=== PATIENT | female | born 1935 | race African-American/Black ===

== ENCOUNTER 2021-03-30 15:43 | Inpatient (IN) ==
[2021-03-30 17:36] LABS: Bilirubin,Urine Negative (Negative); Blood, Urine Small mg/dL (Negative); Glucose,Urine (UA) >=500 mg/dL (Negative); Hyaline Casts,Urine 32 /LPF (0-3); Ketones,Urine Negative (Negative); Mucus,Urine Occasional /LPF (Occasional); Nitrite,Urine Negative (Negative); Protein,Urine 30 MG/DL; RBC,Urine 1 /HPF (0-4); Urine Appearance CLEAR (Clear); Urine Color Yellow (Yellow); Urine Specific Gravity 1.013 (1.001-1.035); Urine Urobilinogen < 2.0 EU/DL (0.2-1.0)
[2021-03-30 18:25] LABS: Basophils # 0.1 10*3/uL (0.0-0.2); Basophils % 0.5 % (0.0-0.8); Eosinophils # 0.1 10*3/uL (0.0-0.87); Eosinophils % 0.9 % (0.00-10.9); Hematocrit 30.9 VOL% (35.7-47.0); Hemoglobin 9.6 GM/DL (12.0-16.0); Immature Granulocytes % 0.9 %; Immature Granulocytes Absolute 0.09 #; Lymphocytes # 1.1 10*3/uL (1.4-4.0); Mean Corpuscular HGB Conc 31.1 GM/DL (32-36); Mean Corpuscular Volume 83.1 FL (87-102); Mean Platelet Volume 9.9 FL (9.6-12.0); Monocytes % 5.6 % (1.7-12.7); Neutrophils % 81.1 % (38.7-73.9); Platelet Count 304 T/CUMM (130-400); Red Blood Count 3.72 MC/CUMM (3.8-5.5); Red Cell Distribution Width 13.3 % (9.3-17.3); White Blood Count 9.8 T/CUMM (4-12)
[2021-03-30] MEDS ORDERED: AMPICILLIN/SULBACTAM 3,000 MG in SODIUM CHLORIDE 0.9% 100 ML IV STA (18:30)
[2021-03-30] MEDS ORDERED: ONDANSETRON 4 MG/2 ML VIAL IV PRN (18:50)
[2021-03-30] MEDS ORDERED: ACETAMINOPHEN 325 MG TABLET PO PRN (18:50)
[2021-03-30 18:51] LABS: Albumin 2.9 G/DL (3.4-5.0); Bilirubin,Total 0.5 MG/DL (0.20-1.00); Osmolality,Calculated 290.1 MOS/KG (273-304); Potassium 3.4 MMOL/L (3.5-5.1); Total Protein 7.4 G/DL (6.4-8.2)
[2021-03-30] MEDS: SODIUM CHLORIDE 0.9% 1,000 ML IV SCH ×2 (19:27→22:49)
[2021-03-30] MEDS ORDERED: DOCUSATE SODIUM 100 MG CAPSULE PO SCH (21:00)
[2021-03-30] MEDS: PANTOPRAZOLE 40 MG TABLET PO SCH ×2 (22:14→22:15)
[2021-03-30] MEDS: DOCUSATE SODIUM 100 MG CAPSULE PO SCH (22:14)
[2021-03-31] MEDS ORDERED: hydrALAZINE 20 MG/1 ML VIAL IV PRN (04:59)
[2021-03-31] MEDS: SODIUM CHLORIDE 0.9% 1,000 ML IV SCH ×4 (05:21→23:18)
[2021-03-31 05:51] LABS: Basophils # 0.1 10*3/uL (0.0-0.2); Basophils % 0.6 % (0.0-0.8); Eosinophils # 0.2 10*3/uL (0.0-0.87); Eosinophils % 1.8 % (0.00-10.9); Hematocrit 29.2 VOL% (35.7-47.0); Immature Granulocytes % 0.6 %; Immature Granulocytes Absolute 0.05 #; Lymphocytes # 1.7 10*3/uL (1.4-4.0); Lymphocytes % 19.6 % (21.3-54.2); Mean Corpuscular HGB Conc 30.8 GM/DL (32-36); Mean Platelet Volume 10.4 FL (9.6-12.0); Monocytes % 5.3 % (1.7-12.7); Neutrophils % 72.1 % (38.7-73.9); Platelet Count 297 T/CUMM (130-400); Red Blood Count 3.52 MC/CUMM (3.8-5.5); Red Cell Distribution Width 13.3 % (9.3-17.3); White Blood Count 8.9 T/CUMM (4-12)
[2021-03-31 06:15] LABS: Calcium 8.7 MG/DL (8.5-10.1); Osmolality,Calculated 283.8 MOS/KG (273-304); Potassium 2.9 MMOL/L (3.5-5.1)
[2021-03-31] MEDS ORDERED: POTASSIUM CHLORIDE RIDER 10 MEQ/100 ML PREMIX IV PRN (06:35)
[2021-03-31] MEDS ORDERED: DEXTROSE 50% 25 GM/50 ML VIAL IV PRN (07:05)
[2021-03-31] MEDS ORDERED: GLUCAGON 1 MG VIAL IM PRN (07:05)
[2021-03-31] MEDS ORDERED: MAGNESIUM SULF RIDER 4 GM/100 ML PREMIX IV PRN (07:22)
[2021-03-31] MEDS: MAGNESIUM SULF RIDER 2 GM/50 ML PREMIX IV PRN (07:58)
[2021-03-31] MEDS ORDERED: PANTOPRAZOLE 40 MG TABLET PO SCH (09:00)
[2021-03-31] MEDS: INSULIN REGULAR 100 UNIT/ML SUBCUT SCH ×4 (09:21→20:51)
[2021-03-31] MEDS: DOCUSATE SODIUM 100 MG CAPSULE PO SCH ×2 (09:21→20:44)
[2021-03-31] MEDS: PANTOPRAZOLE 40 MG TABLET PO SCH (09:21)
[2021-03-31] MEDS: POTASSIUM CHLORIDE RIDER 10 MEQ/100 ML PREMIX IV PRN ×5 (10:18→16:17)
[2021-03-31] MEDS ORDERED: cloNIDine 0.1 MG TABLET PO SCH ×2 (12:00→21:00)
[2021-03-31] MEDS: hydroCHLOROthiazide 12.5 MG CAPSULE PO SCH (12:50)
[2021-03-31] MEDS ORDERED: BICILLIN CR 1,200,000 UNIT/2 ML SYRINGE IM ONE (15:00)
[2021-03-31] MEDS: GLIMEPIRIDE 2 MG TABLET PO SCH (17:46)
[2021-03-31] MEDS: carvediloL 12.5 MG TABLET PO SCH (17:46)
[2021-03-31] MEDS: COLLAGENASE OINT 30 GM TUBE TOP SCH (17:46)
[2021-03-31 19:43] LABS: Potassium 3.8 MMOL/L (3.5-5.1)
[2021-03-31] MEDS: TEMAZEPAM 7.5 MG CAPSULE PO SCH (20:43)
[2021-03-31] MEDS: busPIRone 5 MG TABLET PO SCH (20:44)
[2021-03-31] MEDS: POTASSIUM CHLORIDE 20 MEQ TABLET PO SCH (20:44)
[2021-03-31] MEDS: MEMANTINE 10 MG TABLET PO SCH (20:44)
[2021-04-01 06:29] LABS: Basophils % 0.5 % (0.0-0.8); Eosinophils # 0.1 10*3/uL (0.0-0.87); Eosinophils % 1.7 % (0.00-10.9); Hematocrit 29.8 VOL% (35.7-47.0); Hemoglobin 8.9 GM/DL (12.0-16.0); Immature Granulocytes % 1.1 %; Immature Granulocytes Absolute 0.09 #; Lymphocytes # 1.5 10*3/uL (1.4-4.0); Lymphocytes % 17.4 % (21.3-54.2); Mean Corpuscular HGB Conc 29.9 GM/DL (32-36); Mean Corpuscular Volume 85.1 FL (87-102); Mean Platelet Volume 9.9 FL (9.6-12.0); Monocytes % 6.1 % (1.7-12.7); Neutrophils % 73.2 % (38.7-73.9); Platelet Count 279 T/CUMM (130-400); Red Cell Distribution Width 13.5 % (9.3-17.3); White Blood Count 8.3 T/CUMM (4-12)
[2021-04-01 06:59] LABS: Albumin 2.2 G/DL (3.4-5.0); Bilirubin,Total 0.7 MG/DL (0.20-1.00); Calcium 8.4 MG/DL (8.5-10.1); Osmolality,Calculated 280.4 MOS/KG (273-304)
[2021-04-01] MEDS: INSULIN REGULAR 100 UNIT/ML SUBCUT SCH ×4 (07:48→21:57)
[2021-04-01] MEDS: COLLAGENASE OINT 30 GM TUBE TOP SCH (08:47)
[2021-04-01] MEDS: MAGNESIUM SULF RIDER 2 GM/50 ML PREMIX IV PRN (08:47)
[2021-04-01] MEDS: carvediloL 12.5 MG TABLET PO SCH ×2 (08:47→16:42)
[2021-04-01] MEDS: MEMANTINE 10 MG TABLET PO SCH ×2 (08:47→21:58)
[2021-04-01] MEDS: hydroCHLOROthiazide 12.5 MG CAPSULE PO SCH (08:47)
[2021-04-01] MEDS: GLIMEPIRIDE 2 MG TABLET PO SCH ×2 (08:47→16:42)
[2021-04-01] MEDS: POTASSIUM CHLORIDE 20 MEQ TABLET PO SCH ×2 (09:41→21:58)
[2021-04-01] MEDS: busPIRone 5 MG TABLET PO SCH ×2 (09:41→21:58)
[2021-04-01] MEDS: DOCUSATE SODIUM 100 MG CAPSULE PO SCH ×2 (09:41→21:58)
[2021-04-01] MEDS: PANTOPRAZOLE 40 MG TABLET PO SCH (09:41)
[2021-04-01] MEDS: FERROUS SULFATE 325 MG TABLET PO SCH (09:41)
[2021-04-01] MEDS: SODIUM CHLORIDE 0.9% 1,000 ML IV SCH ×2 (10:14→13:39)
[2021-04-01] MEDS ORDERED: TRANEXAMIC ACID 1,000 MG/10 ML VIAL ONE (10:16)
[2021-04-01] MEDS ORDERED: DEXMEDETOMIDINE 200 MCG/2 ML VIAL ONE (10:16)
[2021-04-01] MEDS ORDERED: MIDAZOLAM 2 MG/2 ML VIAL ONE (10:16)
[2021-04-01] MEDS ORDERED: ONDANSETRON 4 MG/2 ML VIAL ONE (10:16)
[2021-04-01] MEDS ORDERED: LIDOCAINE 1% 5 ML VIAL ONE (10:25)
[2021-04-01] MEDS ORDERED: BUPIVACAINE MPF 0.25% 30 ML VIAL ONE (10:25)
[2021-04-01] MEDS ORDERED: DEXAMETHASONE 4 MG/1 ML VIAL ONE (10:25)
[2021-04-01] MEDS ORDERED: ceFAZolin 1,000 MG VIAL ONE (11:28)
[2021-04-01] MEDS ORDERED: MAGNESIUM HYDROXIDE SUSP 30 ML UDCUP PO PRN (12:35)
[2021-04-01] MEDS ORDERED: diphenhydrAMINE CAP 25 MG CAPSULE PO PRN (12:36)
[2021-04-01] MEDS ORDERED: BISACODYL 10 MG SUPP RECTAL PRN (12:36)
[2021-04-01] MEDS ORDERED: LACTULOSE 20 GM/30 ML UDCUP PO PRN (12:36)
[2021-04-01] MEDS ORDERED: DEXTROSE 50% 25 GM/50 ML VIAL IV PRN (18:26)
[2021-04-01] MEDS ORDERED: GLUCAGON 1 MG VIAL IM PRN (18:26)
[2021-04-01] MEDS: HYDROmorphone 2 MG/1 ML VIAL IV PRN (21:57)
[2021-04-01] MEDS: TEMAZEPAM 7.5 MG CAPSULE PO SCH (21:58)
[2021-04-02] MEDS: HYDROmorphone 2 MG/1 ML VIAL IV PRN ×2 (02:07→15:06)
[2021-04-02] MEDS: FONDAPARINUX 2.5 MG/0.5 ML SYRINGE SUBCUT SCH (05:22)
[2021-04-02 05:27] LABS: Basophils % 0.4 % (0.0-0.8); Eosinophils # 0.1 10*3/uL (0.0-0.87); Eosinophils % 0.6 % (0.00-10.9); Hematocrit 27.9 VOL% (35.7-47.0); Hemoglobin 8.5 GM/DL (12.0-16.0); Immature Granulocytes % 0.6 %; Immature Granulocytes Absolute 0.07 #; Lymphocytes # 1.5 10*3/uL (1.4-4.0); Lymphocytes % 13.4 % (21.3-54.2); Mean Corpuscular HGB Conc 30.5 GM/DL (32-36); Mean Platelet Volume 9.6 FL (9.6-12.0); Monocytes % 5.1 % (1.7-12.7); Neutrophils % 79.9 % (38.7-73.9); Platelet Count 295 T/CUMM (130-400); Red Blood Count 3.32 MC/CUMM (3.8-5.5); Red Cell Distribution Width 13.5 % (9.3-17.3)
[2021-04-02 05:49] LABS: Calcium 8.2 MG/DL (8.5-10.1); Osmolality,Calculated 277.7 MOS/KG (273-304); Potassium 4.4 MMOL/L (3.5-5.1)
[2021-04-02] MEDS: MAGNESIUM SULF RIDER 2 GM/50 ML PREMIX IV PRN (06:24)
[2021-04-02] MEDS: INSULIN REGULAR 100 UNIT/ML SUBCUT SCH ×4 (07:25→20:37)
[2021-04-02] MEDS: carvediloL 12.5 MG TABLET PO SCH ×2 (08:30→16:14)
[2021-04-02] MEDS: SERTRALINE 25 MG TABLET PO SCH (08:30)
[2021-04-02] MEDS: PANTOPRAZOLE 40 MG TABLET PO SCH (08:30)
[2021-04-02] MEDS: GLIMEPIRIDE 2 MG TABLET PO SCH ×2 (08:30→16:14)
[2021-04-02] MEDS: hydroCHLOROthiazide 12.5 MG CAPSULE PO SCH (08:30)
[2021-04-02] MEDS: POTASSIUM CHLORIDE 20 MEQ TABLET PO SCH ×2 (08:30→21:22)
[2021-04-02] MEDS: FERROUS SULFATE 325 MG TABLET PO SCH (08:30)
[2021-04-02] MEDS: MEMANTINE 10 MG TABLET PO SCH ×2 (08:30→21:22)
[2021-04-02] MEDS: busPIRone 5 MG TABLET PO SCH ×2 (08:30→21:22)
[2021-04-02] MEDS: SERTRALINE 100 MG TABLET PO SCH (08:30)
[2021-04-02] MEDS: DOCUSATE SODIUM 100 MG CAPSULE PO SCH ×2 (08:30→21:22)
[2021-04-02] MEDS: COLLAGENASE OINT 30 GM TUBE TOP SCH (08:31)
[2021-04-02] MEDS: SODIUM CHLORIDE 0.9% 1,000 ML IV SCH (15:57)
[2021-04-02] MEDS: TEMAZEPAM 7.5 MG CAPSULE PO SCH (21:22)
[2021-04-03] MEDS: FONDAPARINUX 2.5 MG/0.5 ML SYRINGE SUBCUT SCH (05:22)
[2021-04-03] MEDS: INSULIN REGULAR 100 UNIT/ML SUBCUT SCH ×4 (07:32→20:58)
[2021-04-03] MEDS: DOCUSATE SODIUM 100 MG CAPSULE PO SCH ×2 (08:53→21:01)
[2021-04-03] MEDS: GLIMEPIRIDE 2 MG TABLET PO SCH ×2 (08:53→17:21)
[2021-04-03] MEDS: busPIRone 5 MG TABLET PO SCH ×2 (08:54→20:57)
[2021-04-03] MEDS: POTASSIUM CHLORIDE 20 MEQ TABLET PO SCH ×2 (08:54→20:56)
[2021-04-03] MEDS: MEMANTINE 10 MG TABLET PO SCH ×2 (08:54→20:57)
[2021-04-03] MEDS: SERTRALINE 100 MG TABLET PO SCH (08:54)
[2021-04-03] MEDS: PANTOPRAZOLE 40 MG TABLET PO SCH (08:54)
[2021-04-03] MEDS: FERROUS SULFATE 325 MG TABLET PO SCH (08:54)
[2021-04-03] MEDS: hydroCHLOROthiazide 12.5 MG CAPSULE PO SCH (08:54)
[2021-04-03] MEDS: SERTRALINE 25 MG TABLET PO SCH (08:54)
[2021-04-03] MEDS: carvediloL 12.5 MG TABLET PO SCH ×2 (08:55→17:21)
[2021-04-03] MEDS: COLLAGENASE OINT 30 GM TUBE TOP SCH (08:55)
[2021-04-03] MEDS: cloNIDine 0.1 MG TABLET PO PRN (20:57)
[2021-04-03] MEDS: TEMAZEPAM 7.5 MG CAPSULE PO SCH (20:57)
[2021-04-04 05:11] LABS: Basophils % 0.4 % (0.0-0.8); Eosinophils # 0.1 10*3/uL (0.0-0.87); Eosinophils % 0.9 % (0.00-10.9); Hematocrit 27.8 VOL% (35.7-47.0); Hemoglobin 8.5 GM/DL (12.0-16.0); Immature Granulocytes % 0.8 %; Immature Granulocytes Absolute 0.08 #; Lymphocytes # 1.1 10*3/uL (1.4-4.0); Lymphocytes % 10.2 % (21.3-54.2); Mean Corpuscular HGB Conc 30.6 GM/DL (32-36); Mean Corpuscular Volume 83.2 FL (87-102); Monocytes % 4.4 % (1.7-12.7); Neutrophils % 83.3 % (38.7-73.9); Platelet Count 286 T/CUMM (130-400); Red Blood Count 3.34 MC/CUMM (3.8-5.5); Red Cell Distribution Width 13.4 % (9.3-17.3); White Blood Count 10.4 T/CUMM (4-12)
[2021-04-04 05:28] LABS: Calcium 8.9 MG/DL (8.5-10.1); Osmolality,Calculated 264.5 MOS/KG (273-304); Potassium 4.9 MMOL/L (3.5-5.1)
[2021-04-04] MEDS: FONDAPARINUX 2.5 MG/0.5 ML SYRINGE SUBCUT SCH (05:49)
[2021-04-04] MEDS: INSULIN REGULAR 100 UNIT/ML SUBCUT SCH ×4 (07:12→22:55)
[2021-04-04] MEDS: hydroCHLOROthiazide 12.5 MG CAPSULE PO SCH (10:24)
[2021-04-04] MEDS: PANTOPRAZOLE 40 MG TABLET PO SCH (10:24)
[2021-04-04] MEDS: COLLAGENASE OINT 30 GM TUBE TOP SCH (10:24)
[2021-04-04] MEDS: GLIMEPIRIDE 2 MG TABLET PO SCH ×2 (10:24→17:36)
[2021-04-04] MEDS: carvediloL 12.5 MG TABLET PO SCH ×2 (10:24→17:36)
[2021-04-04] MEDS: FERROUS SULFATE 325 MG TABLET PO SCH (10:24)
[2021-04-04] MEDS: DOCUSATE SODIUM 100 MG CAPSULE PO SCH ×2 (10:24→22:52)
[2021-04-04] MEDS: SERTRALINE 100 MG TABLET PO SCH (10:24)
[2021-04-04] MEDS: MEMANTINE 10 MG TABLET PO SCH ×2 (10:24→22:52)
[2021-04-04] MEDS: SERTRALINE 25 MG TABLET PO SCH (10:24)
[2021-04-04] MEDS: POTASSIUM CHLORIDE 20 MEQ TABLET PO SCH ×3 (10:24→22:53)
[2021-04-04] MEDS: busPIRone 5 MG TABLET PO SCH ×2 (10:24→22:53)
[2021-04-04] MEDS: cloNIDine 0.1 MG TABLET PO PRN (22:53)
[2021-04-04] MEDS: TEMAZEPAM 7.5 MG CAPSULE PO SCH (22:53)
[2021-04-05] MEDS: FONDAPARINUX 2.5 MG/0.5 ML SYRINGE SUBCUT SCH (05:29)
[2021-04-05 05:47] LABS: Basophils % 0.4 % (0.0-0.8); Eosinophils # 0.1 10*3/uL (0.0-0.87); Eosinophils % 1.3 % (0.00-10.9); Hematocrit 27.1 VOL% (35.7-47.0); Hemoglobin 8.4 GM/DL (12.0-16.0); Immature Granulocytes % 0.7 %; Immature Granulocytes Absolute 0.07 #; Lymphocytes # 1.1 10*3/uL (1.4-4.0); Lymphocytes % 11.1 % (21.3-54.2); Mean Corpuscular Volume 82.9 FL (87-102); Mean Platelet Volume 10.3 FL (9.6-12.0); Monocytes % 4.4 % (1.7-12.7); Neutrophils % 82.1 % (38.7-73.9); Platelet Count 319 T/CUMM (130-400); Red Blood Count 3.27 MC/CUMM (3.8-5.5); Red Cell Distribution Width 13.5 % (9.3-17.3); White Blood Count 9.5 T/CUMM (4-12)
[2021-04-05 06:09] LABS: Calcium 8.7 MG/DL (8.5-10.1); Osmolality,Calculated 271.2 MOS/KG (273-304); Potassium 4.6 MMOL/L (3.5-5.1)
[2021-04-05] MEDS: MAGNESIUM SULF RIDER 2 GM/50 ML PREMIX IV PRN (06:30)
[2021-04-05] MEDS: INSULIN REGULAR 100 UNIT/ML SUBCUT SCH ×4 (08:00→21:44)
[2021-04-05] MEDS: busPIRone 5 MG TABLET PO SCH ×2 (08:34→21:41)
[2021-04-05] MEDS: GLIMEPIRIDE 2 MG TABLET PO SCH ×2 (08:34→16:43)
[2021-04-05] MEDS: POTASSIUM CHLORIDE 20 MEQ TABLET PO SCH ×2 (08:34→21:40)
[2021-04-05] MEDS: hydroCHLOROthiazide 12.5 MG CAPSULE PO SCH (08:34)
[2021-04-05] MEDS: FERROUS SULFATE 325 MG TABLET PO SCH (08:34)
[2021-04-05] MEDS: SERTRALINE 100 MG TABLET PO SCH (08:34)
[2021-04-05] MEDS: PANTOPRAZOLE 40 MG TABLET PO SCH (08:34)
[2021-04-05] MEDS: carvediloL 12.5 MG TABLET PO SCH ×2 (08:34→16:43)
[2021-04-05] MEDS: MEMANTINE 10 MG TABLET PO SCH ×2 (08:34→21:40)
[2021-04-05] MEDS: SERTRALINE 25 MG TABLET PO SCH (08:34)
[2021-04-05] MEDS: COLLAGENASE OINT 30 GM TUBE TOP SCH (08:35)
[2021-04-05] MEDS: DOCUSATE SODIUM 100 MG CAPSULE PO SCH ×2 (08:50→21:40)
[2021-04-05] MEDS: TEMAZEPAM 7.5 MG CAPSULE PO SCH (21:44)
[2021-04-06] MEDS: FONDAPARINUX 2.5 MG/0.5 ML SYRINGE SUBCUT SCH (06:41)
[2021-04-06] MEDS: INSULIN REGULAR 100 UNIT/ML SUBCUT SCH ×4 (07:33→20:50)
[2021-04-06] MEDS: hydroCHLOROthiazide 12.5 MG CAPSULE PO SCH (08:30)
[2021-04-06] MEDS: SERTRALINE 25 MG TABLET PO SCH (08:30)
[2021-04-06] MEDS: carvediloL 12.5 MG TABLET PO SCH ×2 (08:30→17:26)
[2021-04-06] MEDS: FERROUS SULFATE 325 MG TABLET PO SCH (08:31)
[2021-04-06] MEDS: DOCUSATE SODIUM 100 MG CAPSULE PO SCH ×2 (08:31→21:42)
[2021-04-06] MEDS: POTASSIUM CHLORIDE 20 MEQ TABLET PO SCH ×2 (08:31→21:42)
[2021-04-06] MEDS: PANTOPRAZOLE 40 MG TABLET PO SCH (08:31)
[2021-04-06] MEDS: GLIMEPIRIDE 2 MG TABLET PO SCH ×2 (08:31→17:26)
[2021-04-06] MEDS: MEMANTINE 10 MG TABLET PO SCH ×2 (08:31→21:42)
[2021-04-06] MEDS: COLLAGENASE OINT 30 GM TUBE TOP SCH (08:32)
[2021-04-06] MEDS: busPIRone 5 MG TABLET PO SCH ×2 (08:32→21:42)
[2021-04-06] MEDS: SERTRALINE 100 MG TABLET PO SCH (08:32)
[2021-04-06] MEDS: TEMAZEPAM 7.5 MG CAPSULE PO SCH (21:42)
[2021-04-07] MEDS: FONDAPARINUX 2.5 MG/0.5 ML SYRINGE SUBCUT SCH (05:20)
[2021-04-07] MEDS: GLIMEPIRIDE 2 MG TABLET PO SCH ×2 (09:00→16:45)
[2021-04-07] MEDS: carvediloL 12.5 MG TABLET PO SCH ×2 (09:00→16:45)
[2021-04-07] MEDS: FERROUS SULFATE 325 MG TABLET PO SCH (09:00)
[2021-04-07] MEDS: busPIRone 5 MG TABLET PO SCH ×2 (09:00→21:10)
[2021-04-07] MEDS: SERTRALINE 25 MG TABLET PO SCH (09:00)
[2021-04-07] MEDS: MEMANTINE 10 MG TABLET PO SCH ×2 (09:00→21:11)
[2021-04-07] MEDS: PANTOPRAZOLE 40 MG TABLET PO SCH (09:00)
[2021-04-07] MEDS: DOCUSATE SODIUM 100 MG CAPSULE PO SCH ×2 (09:00→21:10)
[2021-04-07] MEDS: SERTRALINE 100 MG TABLET PO SCH (09:00)
[2021-04-07] MEDS: POTASSIUM CHLORIDE 20 MEQ TABLET PO SCH ×2 (09:00→21:10)
[2021-04-07] MEDS: hydroCHLOROthiazide 12.5 MG CAPSULE PO SCH (09:00)
[2021-04-07] MEDS: COLLAGENASE OINT 30 GM TUBE TOP SCH (09:01)
[2021-04-07] MEDS: INSULIN REGULAR 100 UNIT/ML SUBCUT SCH ×4 (09:36→21:11)
[2021-04-07] MEDS: TEMAZEPAM 7.5 MG CAPSULE PO SCH (21:10)
[2021-04-08 05:28] LABS: Basophils # 0.1 10*3/uL (0.0-0.2); Basophils % 0.9 % (0.0-0.8); Eosinophils # 0.1 10*3/uL (0.0-0.87); Eosinophils % 1.2 % (0.00-10.9); Hematocrit 33.3 VOL% (35.7-47.0); Immature Granulocytes % 0.7 %; Immature Granulocytes Absolute 0.05 #; Lymphocytes % 14.1 % (21.3-54.2); Mean Corpuscular Volume 87.2 FL (87-102); Mean Platelet Volume 10.4 FL (9.6-12.0); Monocytes % 5.8 % (1.7-12.7); Neutrophils % 77.3 % (38.7-73.9); Platelet Count 315 T/CUMM (130-400); Red Blood Count 3.82 MC/CUMM (3.8-5.5); Red Cell Distribution Width 13.7 % (9.3-17.3); White Blood Count 6.9 T/CUMM (4-12)
[2021-04-08] MEDS: FONDAPARINUX 2.5 MG/0.5 ML SYRINGE SUBCUT SCH (05:51)
[2021-04-08 05:52] LABS: Bilirubin,Total 0.8 MG/DL (0.20-1.00); Calcium 8.9 MG/DL (8.5-10.1); Osmolality,Calculated 269.8 MOS/KG (273-304); Total Protein 6.6 G/DL (6.4-8.2)
[2021-04-08] MEDS: INSULIN REGULAR 100 UNIT/ML SUBCUT SCH ×2 (09:04→11:51)
[2021-04-08] MEDS: POTASSIUM CHLORIDE 20 MEQ TABLET PO SCH (09:05)
[2021-04-08] MEDS: GLIMEPIRIDE 2 MG TABLET PO SCH (09:05)
[2021-04-08] MEDS: PANTOPRAZOLE 40 MG TABLET PO SCH (09:05)
[2021-04-08] MEDS: carvediloL 12.5 MG TABLET PO SCH (09:05)
[2021-04-08] MEDS: MEMANTINE 10 MG TABLET PO SCH (09:06)
[2021-04-08] MEDS: hydroCHLOROthiazide 12.5 MG CAPSULE PO SCH (09:06)
[2021-04-08] MEDS: SERTRALINE 25 MG TABLET PO SCH (09:06)
[2021-04-08] MEDS: busPIRone 5 MG TABLET PO SCH (09:06)
[2021-04-08] MEDS: DOCUSATE SODIUM 100 MG CAPSULE PO SCH (09:06)
[2021-04-08] MEDS: FERROUS SULFATE 325 MG TABLET PO SCH (09:07)
[2021-04-08] MEDS: COLLAGENASE OINT 30 GM TUBE TOP SCH (09:07)
[2021-04-08] MEDS: SERTRALINE 100 MG TABLET PO SCH (09:07)
[2021-04-08 11:16] VITALS: BP 126/43
== END 2021-04-08 15:18 | disposition swing bed (61) | DRG 522 ==
LOC: N.ED 15:43 → N.EDINP 19:03 → N.3E 20:25
PROVIDERS: ADMIT Internal Medicine; ATTEND Internal Medicine

== ENCOUNTER 2021-06-05 16:03 | Observation (INO) ==
[2021-06-05] MEDS ORDERED: fentaNYL 100 MCG/2 ML VIAL IV STA (16:40)
[2021-06-05] MEDS ORDERED: propofoL 200 MG/20 ML VIAL IV STA (16:41)
[2021-06-05 19:21] LABS: Calcium 8.8 MG/DL (8.5-10.1); Osmolality,Calculated 286.3 MOS/KG (273-304); Potassium 3.1 MMOL/L (3.5-5.1)
[2021-06-05] MEDS ORDERED: HYDROmorphone 2 MG/1 ML VIAL IM STA (19:22)
[2021-06-05 19:23] LABS: Basophils # 0.1 10*3/uL (0.0-0.2); Basophils % 0.8 % (0.0-0.8); Eosinophils # 0.1 10*3/uL (0.0-0.87); Eosinophils % 2.2 % (0.00-10.9); Hematocrit 34.6 VOL% (35.7-47.0); Hemoglobin 10.1 GM/DL (12.0-16.0); Immature Granulocytes % 0.3 %; Immature Granulocytes Absolute 0.02 #; Lymphocytes # 1.4 10*3/uL (1.4-4.0); Lymphocytes % 23.6 % (21.3-54.2); Mean Corpuscular HGB Conc 29.2 GM/DL (32-36); Mean Corpuscular Volume 80.3 FL (87-102); Mean Platelet Volume 9.9 FL (9.6-12.0); Monocytes % 6.5 % (1.7-12.7); Neutrophils % 66.6 % (38.7-73.9); Platelet Count 334 T/CUMM (130-400); Red Blood Count 4.31 MC/CUMM (3.8-5.5); White Blood Count 5.9 T/CUMM (4-12)
[2021-06-05] MEDS ORDERED: HYDROmorphone 2 MG/1 ML VIAL IV PRN (19:37)
[2021-06-05] MEDS ORDERED: ONDANSETRON 4 MG/2 ML VIAL IV PRN (19:37)
[2021-06-05] MEDS ORDERED: hydrALAZINE 20 MG/1 ML VIAL IV PRN (19:38)
[2021-06-05] MEDS: SODIUM CHLORIDE 0.45% 1,000 ML IV SCH (23:13)
[2021-06-06] MEDS: SODIUM CHLORIDE 0.45% 1,000 ML IV SCH ×2 (04:47→11:21)
[2021-06-06] MEDS: PANTOPRAZOLE 40 MG TABLET PO SCH (08:37)
[2021-06-06] MEDS ORDERED: diphenhydrAMINE CAP 25 MG CAPSULE PO PRN (09:04)
[2021-06-06] MEDS ORDERED: BISACODYL 10 MG SUPP RECTAL PRN (09:04)
[2021-06-06] MEDS ORDERED: ACETAMINOPHEN 325 MG TABLET PO PRN (09:04)
[2021-06-06] MEDS ORDERED: MAGNESIUM OXIDE 400 MG TABLET PO ONE (09:11)
[2021-06-06] MEDS ORDERED: MAGNESIUM SULF RIDER 1 GM/100 ML PREMIX IV ONE (09:30)
[2021-06-06] MEDS: POTASSIUM BICARB EFFERVESCENT 20 MEQ TAB.EFF PO SCH (11:20)
[2021-06-06] MEDS ORDERED: GLUCAGON 1 MG VIAL IM PRN (11:30)
[2021-06-06] MEDS ORDERED: DEXTROSE 50% 25 GM/50 ML SYRINGE IV PRN (11:31)
[2021-06-06] MEDS: carvediloL 12.5 MG TABLET PO SCH (17:18)
[2021-06-06] MEDS: GLIMEPIRIDE 2 MG TABLET PO SCH (20:39)
[2021-06-06] MEDS: MEMANTINE 10 MG TABLET PO SCH (20:39)
[2021-06-06] MEDS: busPIRone 5 MG TABLET PO SCH (20:39)
[2021-06-06] MEDS: MAGNESIUM OXIDE 400 MG TABLET PO SCH (20:39)
[2021-06-07] MEDS: SODIUM CHLORIDE 0.45% 1,000 ML IV SCH ×4 (01:31→19:42)
[2021-06-07] MEDS: POTASSIUM BICARB EFFERVESCENT 20 MEQ TAB.EFF PO SCH (08:06)
[2021-06-07] MEDS: hydroCHLOROthiazide 12.5 MG CAPSULE PO SCH (08:06)
[2021-06-07] MEDS: PANTOPRAZOLE 40 MG TABLET PO SCH (08:07)
[2021-06-07] MEDS: GLIMEPIRIDE 2 MG TABLET PO SCH ×2 (08:07→20:29)
[2021-06-07] MEDS: busPIRone 5 MG TABLET PO SCH ×2 (08:07→20:29)
[2021-06-07] MEDS: MAGNESIUM OXIDE 400 MG TABLET PO SCH ×2 (08:07→20:28)
[2021-06-07] MEDS: SERTRALINE 100 MG TABLET PO SCH (08:07)
[2021-06-07] MEDS: MEMANTINE 10 MG TABLET PO SCH ×2 (08:07→20:29)
[2021-06-07] MEDS: carvediloL 12.5 MG TABLET PO SCH ×2 (08:07→16:08)
[2021-06-07] MEDS ORDERED: KETOROLAC 15 MG/1 ML VIAL IV ONE (13:57)
[2021-06-07] MEDS: ENOXAPARIN 30 MG/0.3 ML SYRINGE SUBCUT SCH (14:45)
[2021-06-07] MEDS: ZALEPLON 5 MG CAPSULE PO PRN (20:29)
[2021-06-08] MEDS: SODIUM CHLORIDE 0.45% 1,000 ML IV SCH ×3 (03:19→23:09)
[2021-06-08 05:55] LABS: Basophils % 0.5 % (0.0-0.8); Eosinophils # 0.1 10*3/uL (0.0-0.87); Eosinophils % 1.9 % (0.00-10.9); Hematocrit 32.7 VOL% (35.7-47.0); Hemoglobin 9.7 GM/DL (12.0-16.0); Immature Granulocytes % 0.8 %; Immature Granulocytes Absolute 0.05 #; Lymphocytes # 1.5 10*3/uL (1.4-4.0); Lymphocytes % 23.1 % (21.3-54.2); Mean Corpuscular HGB Conc 29.7 GM/DL (32-36); Mean Corpuscular Volume 79.8 FL (87-102); Mean Platelet Volume 10.2 FL (9.6-12.0); Monocytes % 6.2 % (1.7-12.7); Neutrophils % 67.5 % (38.7-73.9); Platelet Count 320 T/CUMM (130-400); White Blood Count 6.3 T/CUMM (4-12)
[2021-06-08 06:07] LABS: Calcium 8.1 MG/DL (8.5-10.1); Osmolality,Calculated 279.3 MOS/KG (273-304); Potassium 2.9 MMOL/L (3.5-5.1)
[2021-06-08] MEDS ORDERED: POTASSIUM CHLORIDE 20 MEQ TABLET PO ONE (06:30)
[2021-06-08] MEDS: PANTOPRAZOLE 40 MG TABLET PO SCH (09:20)
[2021-06-08] MEDS: GLIMEPIRIDE 2 MG TABLET PO SCH ×2 (09:20→23:08)
[2021-06-08] MEDS: SERTRALINE 100 MG TABLET PO SCH (09:20)
[2021-06-08] MEDS: MAGNESIUM OXIDE 400 MG TABLET PO SCH ×2 (09:20→23:08)
[2021-06-08] MEDS: hydroCHLOROthiazide 12.5 MG CAPSULE PO SCH (09:20)
[2021-06-08] MEDS: carvediloL 12.5 MG TABLET PO SCH ×2 (09:20→17:09)
[2021-06-08] MEDS: busPIRone 5 MG TABLET PO SCH ×2 (09:20→23:08)
[2021-06-08] MEDS: POTASSIUM CHLORIDE 20 MEQ TABLET PO PRN (09:20)
[2021-06-08] MEDS: POTASSIUM BICARB EFFERVESCENT 20 MEQ TAB.EFF PO SCH (09:21)
[2021-06-08] MEDS: MEMANTINE 10 MG TABLET PO SCH ×2 (09:21→23:08)
[2021-06-08] MEDS ORDERED: ZINC OXIDE PASTE 113 GM TUBE TOP PRN (12:02)
[2021-06-08] MEDS: ENOXAPARIN 30 MG/0.3 ML SYRINGE SUBCUT SCH (15:06)
[2021-06-08] MEDS ORDERED: MAGNESIUM SULF RIDER 2 GM/50 ML PREMIX IV ONE (23:20)
[2021-06-08] MEDS ORDERED: DEXTROSE 50% 25 GM/50 ML VIAL IV PRN (23:42)
[2021-06-08] MEDS ORDERED: GLUCAGON 1 MG VIAL IM PRN (23:42)
[2021-06-09 05:59] LABS: Basophils # 0.1 10*3/uL (0.0-0.2); Basophils % 0.7 % (0.0-0.8); Eosinophils # 0.1 10*3/uL (0.0-0.87); Eosinophils % 1.2 % (0.00-10.9); Hematocrit 33.4 VOL% (35.7-47.0); Hemoglobin 9.8 GM/DL (12.0-16.0); Immature Granulocytes % 0.5 %; Immature Granulocytes Absolute 0.04 #; Lymphocytes # 1.5 10*3/uL (1.4-4.0); Lymphocytes % 18.2 % (21.3-54.2); Mean Corpuscular HGB Conc 29.3 GM/DL (32-36); Mean Corpuscular Volume 79.3 FL (87-102); Mean Platelet Volume 10.2 FL (9.6-12.0); Monocytes % 5.7 % (1.7-12.7); Neutrophils % 73.7 % (38.7-73.9); Platelet Count 371 T/CUMM (130-400); Red Blood Count 4.21 MC/CUMM (3.8-5.5); Red Cell Distribution Width 15.1 % (9.3-17.3); White Blood Count 8.1 T/CUMM (4-12)
[2021-06-09 06:29] LABS: Albumin 2.5 G/DL (3.4-5.0); Bilirubin,Total 0.4 MG/DL (0.20-1.00); Calcium 8.6 MG/DL (8.5-10.1); Osmolality,Calculated 267.2 MOS/KG (273-304); Potassium 3.9 MMOL/L (3.5-5.1); Total Protein 7.3 G/DL (6.4-8.2)
[2021-06-09] MEDS: SERTRALINE 100 MG TABLET PO SCH (09:02)
[2021-06-09] MEDS: carvediloL 12.5 MG TABLET PO SCH ×2 (09:02→16:15)
[2021-06-09] MEDS: busPIRone 5 MG TABLET PO SCH ×2 (09:02→21:43)
[2021-06-09] MEDS: GLIMEPIRIDE 2 MG TABLET PO SCH ×2 (09:02→21:43)
[2021-06-09] MEDS: PANTOPRAZOLE 40 MG TABLET PO SCH (09:02)
[2021-06-09] MEDS: MAGNESIUM OXIDE 400 MG TABLET PO SCH ×2 (09:02→21:43)
[2021-06-09] MEDS: MEMANTINE 10 MG TABLET PO SCH ×2 (09:03→21:43)
[2021-06-09] MEDS: INSULIN REGULAR 100 UNIT/ML SUBCUT SCH ×2 (09:03→16:15)
[2021-06-09] MEDS: SODIUM CHLORIDE 0.45% 1,000 ML IV SCH ×3 (09:05→22:00)
[2021-06-09] MEDS: ENOXAPARIN 30 MG/0.3 ML SYRINGE SUBCUT SCH (13:23)
[2021-06-09] MEDS ORDERED: lisinopriL 10 MG TABLET PO SCH (21:22)
[2021-06-09] MEDS: ZALEPLON 5 MG CAPSULE PO PRN (21:46)
[2021-06-10 05:17] LABS: Basophils % 0.6 % (0.0-0.8); Eosinophils # 0.2 10*3/uL (0.0-0.87); Eosinophils % 2.3 % (0.00-10.9); Hemoglobin 8.9 GM/DL (12.0-16.0); Immature Granulocytes % 0.5 %; Immature Granulocytes Absolute 0.03 #; Lymphocytes # 1.4 10*3/uL (1.4-4.0); Lymphocytes % 21.4 % (21.3-54.2); Mean Corpuscular HGB Conc 29.7 GM/DL (32-36); Mean Corpuscular Volume 78.9 FL (87-102); Mean Platelet Volume 9.9 FL (9.6-12.0); Monocytes % 6.5 % (1.7-12.7); Neutrophils % 68.7 % (38.7-73.9); Platelet Count 299 T/CUMM (130-400); Red Cell Distribution Width 15.1 % (9.3-17.3); White Blood Count 6.5 T/CUMM (4-12)
[2021-06-10 05:41] LABS: Calcium 8.5 MG/DL (8.5-10.1); Osmolality,Calculated 277.4 MOS/KG (273-304); Potassium 3.3 MMOL/L (3.5-5.1)
[2021-06-10] MEDS: INSULIN REGULAR 100 UNIT/ML SUBCUT SCH (07:08)
[2021-06-10] MEDS: MAGNESIUM OXIDE 400 MG TABLET PO SCH (08:00)
[2021-06-10] MEDS: carvediloL 12.5 MG TABLET PO SCH (08:00)
[2021-06-10] MEDS: SERTRALINE 100 MG TABLET PO SCH (08:00)
[2021-06-10] MEDS: MEMANTINE 10 MG TABLET PO SCH (08:00)
[2021-06-10] MEDS: POTASSIUM CHLORIDE 20 MEQ TABLET PO PRN (08:00)
[2021-06-10] MEDS: busPIRone 5 MG TABLET PO SCH (08:00)
[2021-06-10] MEDS: PANTOPRAZOLE 40 MG TABLET PO SCH (08:00)
[2021-06-10] MEDS: SODIUM CHLORIDE 0.45% 1,000 ML IV SCH (08:00)
[2021-06-10] MEDS: GLIMEPIRIDE 2 MG TABLET PO SCH (08:01)
[2021-06-10 11:57] VITALS: BP 160/65
== END 2021-06-10 17:30 | disposition hospice, home (50) ==
LOC: EDUNIT# → EDBD → N.ED 16:03 → INTOOBSV 19:37 → N.3E 19:37
PROVIDERS: ADMIT Internal Medicine; ATTEND Internal Medicine